=== PATIENT | male | born 2000 | race Caucasian/White ===

== ENCOUNTER 2023-10-03 01:39 | Emergency (ER) | payer OTHER, SELFPAY ==
[2023-10-03 01:44] VITALS: BP 136/76; PULSE 69; RESP 18; TEMP 36.8; O2SAT 99; BMI 25.1
--- NOTE | 2023-10-03 01:49 | ED_ITS ---
HPI - General Adult General Date Seen: 10/03/23 Chief complaint: Dental/Oral/Mouth Injury/Pain Stated complaint: Tooth pain - L side Time Seen by Provider: 10/03/23 01:44 Source: patient Mode of arrival: ambulatory Limitations: no limitations History of Present Illness HPI narrative: Patient is a 23-year-old who presents for evaluation of left lower molar pain. He says this is been bothering him for ?a while? but it is worse today. No facial swelling, fevers, redness. No dental follow-up at this time. He has been taking ibuprofen and Tylenol but says that is not helping. Related Data Home Medications Medication Instructions Recorded Confirmed No Known Home Medications 10/03/23 10/03/23 Allergies Allergy/AdvReac Type Severity Reaction Status Date / Time No Known Drug Allergies Allergy Verified 10/03/23 01:46 [facility] Medical History (Updated 10/03/23 @ 02:24 by Antony Johnson RN) No significant past medical history Surgical History (Updated 10/03/23 @ 02:24 by Antony Johnson RN) No significant past surgical history Social History Smoking Status: Never smoker Second hand tobacco smoke exposure: No How often do you have a drink containing alcohol: never How often do you have six or more drinks on one occasion: Never AUDIT-C Alcohol total score: 0 Non-prescribed substance use: denies use Exam Narrative: Exam Narrative: Vital signs reviewed In general an alert, nontoxic male. Head: Normocephalic, atraumatic. Eyes: Sclera clear. ENT: Does have what appears to be a broken left lower posterior molar. There is no surrounding swelling or evidence of abscess. It is tender to percussion. Jaw and cheek are normal, no swelling, erythema or evidence of cellulitis. Neck: Supple without adenopathy. Const: Vital Signs, click to edit/add: Vital Signs - 24 hr 10/03/23 01:44 10/03/23 02:15 10/03/23 02:26 Temperature 98.2 F 98.0 F 98.2 F Pulse Rate [Right Pulse Oximeter] 69 74 69 Respiratory Rate 18 18 18 Blood Pressure [Ri ght Upper Arm] 136/76 125/70 136/76 Pulse Oximetry 99 99 Oxygen Delivery Me thod Room Air Room Air Documenting provider has reviewed patient's vital signs: yes Course Course ED Course: Unable to check the prescription monitoring database as it is still not functional. I gave him 1 oxycodone here, advised him going forward would recommend ibuprofen 400+ Tylenol 1000 3 times daily. Prescribed amoxicillin, needs dental follow-up. Return for facial swelling, fevers or other worsening. Vital Signs Vital signs: Initial Vital Signs Temperature 98.2 F 10/03/23 01:44 Temperature Source Temporal Artery Scan 10/03/23 01:44 Pulse Rate 69 10/03/23 01:44 Respiratory Rate 18 10/03/23 01:44 Blood Pressure 136/76 10/03/23 01:44 Blood Pressure Mean 96 10/03/23 01:44 Blood Pressure Position Sitting 10/03/23 01:44 Pulse Oximetry 99 10/03/23 01:44 Oxygen Delivery Method Room Air 10/03/23 01:44 Vital Signs Temperature 98.2 F 10/03/23 01:44 Pulse Rate 69 10/03/23 01:44 Respiratory Rate 18 10/03/23 01:44 Blood Pressure 136/76 10/03/23 01:44 Pulse Oximetry 99 10/03/23 01:44 Oxygen Delivery Method Room Air 10/03/23 01:44 Temperature 98.2 F 10/03/23 02:26 Pulse Rate 69 10/03/23 02:26 Respiratory Rate 18 10/03/23 02:26 Blood Pressure 136/76 10/03/23 02:26 Pulse Oximetry 99 10/03/23 02:15 Oxygen Delivery Method Room Air 10/03/23 02:15 Medications Administered Medications: Discontinued Medications Generic Name Dose Route Start Last Admin Trade Name Smita PRN Reason Stop Dose Admin Oxycodone HCl 5 mg 10/03/23 01:48 10/03/23 01:58 Oxycodone 5 Mg Tablet PO 10/03/23 01:49 5 mg ONCE ONE Administration Discharge Plan Discharge Clinical Impression: Toothache Patient Disposition: Home, Self-Care Condition: Stable Instructions: Toothache (ED) Additional Instructions: Dental follow-up next week. Antibiotic as prescribed. Ibuprofen 400 mg plus Tylenol 1000 mg 3 times daily with food. Ice may be helpful as well. For fevers, facial swelling or other worsening, return to the emergency department. Prescriptions: No Action No Known Home Medications Stand Alone Forms: [facility] Info Instructions
[2023-10-03] MEDS: OXYCODONE 5 MG TABLET PO (01:58)
[2023-10-03 02:15] VITALS: BP 125/70; PULSE 74; RESP 18; TEMP 36.7; O2SAT 99
[2023-10-03 02:26] VITALS: BP 136/76; PULSE 69; RESP 18; TEMP 36.8
== END 2023-10-03 02:30 | disposition home or self-care (01) ==
PROVIDERS: Emergency Provider Emergency Medicine
DX: K08.89 Other specified disorders of teeth and supporting structures (principal)
CPT/HCPCS: 99283; A9270

== ENCOUNTER 2025-03-24 21:16 | Emergency (ER) | payer BC, SELFPAY ==
--- OUTSIDE RECORDS SUMMARY | 2025-03-24 21:18 | XMS_ITS | Clinical Summary ---
Author Organization [facility] Address [address] [place] [id number] Care Team Providers Care Speech Language Pathology Assistant Name Role Phone None Primary Care Provider Unavailabl e Medications No known medications Active Problems No known active problems Encounters Date Type Department Care Team Description 03/24/2025 8:28 PM CDT - 03/24/2025 9:00 PM CDT Emergency [address] [id number] Pierre Rivera PA Dental caries (Primary Dx); Pain, dental Discharge Disposition: Home Self Care 03/24/2025 Travel 02/02/2025 Nurse Triage [facility] Centralized Nurse Triage Pcp, No Error-please disregard from Last 3 Months Social History Tobacco Use Types Packs/Day Years Used Date Smoking Tobacco: Never Assessed Sex and Gender Information Value Date Recorded Sex Assigned at Not on file Legal Sex Male 6:33 PM [employer] Gender Identity Not on file Sexual Orientation Not on file Obstetrics History Last Filed Vital Signs Vital Sign Reading Time Taken Comments Blood Pressure 145/88 03/24/2025 8:35 PM CDT Pulse 60 03/24/2025 8:35 PM CDT Temperature 36.9 C (98.5 F) 03/24/2025 8:31 PM CDT Respiratory Rate 16 03/24/2025 8:33 PM CDT Oxygen Saturation 97% 03/24/2025 8:36 PM CDT Inhaled Oxygen Concentration - - Weight 92.9 kg (204 lb 11.2 oz) 03/24/2025 8:35 PM CDT Height 190.5 cm (6' 3) 03/24/2025 8:35 PM CDT Body Mass Index 25.59 03/24/2025 8:35 PM CDT Plan of Treatment Health Maintenance Due Date Last Done Comments Tdap 2010 Depression screening for age 12+ 2011 HIV for age 15-65 2014 HPV series for age 9-26 (1 - Male 3-dose series) 2014 BMI (ht and wt on same day) for age 18+ 2017 Hepatitis C screening for ag e 18-79 2017 Tetanus booster 2019 COVID-19 vaccine series ( - 2023- season) 2024 Influenza Vaccine (Season Ended) 2025 Pneumococcal series for age 6-49 Aged Out No longer eligible based on patient's age to complete this topic Insurance [facility] Care Teams Speech Language Pathology Assistant Relationship Specialty Start Date End Date None . PCP - General 03/24/25
[2025-03-24 21:21] VITALS: BP 161/98; PULSE 59; RESP 18; TEMP 37.1; O2SAT 98; BMI 25.5
--- NOTE | 2025-03-24 21:40 | ED.DENTAL ---
HPI - Dental/Oral General Date Seen: 03/24/25 Chief complaint: Dental/Oral/Mouth Injury/Pain Stated complaint: tooth infection Time Seen by Provider: 03/24/25 21:26 Source: patient Mode of arrival: ambulatory Limitations: no limitations History of Present Illness HPI Narrative: Patient is a 24-year-old male presenting to the emergency department for tooth pain. He has but also sees dentist tomorrow to do with his broken tooth but states the pain is getting much worsening cannot handle it. He broke the tooth a while ago but pain was tolerable up until this past couple days. Ibuprofen was managing the pain up until last night and throat today. Continue to use ibuprofen and Tylenol with no relief. Has not lost any fevers or chills. No other concerns noted at this time. Has not noticed any swelling underneath his tongue, difficulty breathing, difficulty swallowing. Related Data Home Medications ?Medication ?Instructions ?Recorded ?Confirmed ibuprofen 200 mg tablet (Advil) 1,000 mg PO Q6-8H PRN 03/24/25 03/24/25 Allergies Allergy/AdvReac Type Severity Reaction Status Date / Time No Known Drug Allergies Allergy Verified 10/10/24 11:52 Review of Systems Narrative: Pertinent systems reviewed and were negative unless stated in HPI PFSH PFS Medical History No significant past medical history Surgical History No significant past surgical history Social History Smoking Status: Never smoker Second hand tobacco smoke exposure: No How often do you have a drink containing alcohol: never How often do you have six or more drinks on one occasion: Never AUDIT-C Alcohol total score: 0 Non-prescribed substance use: denies use Exam Narrative: Exam Narrative: Const: Well-nourished, Well-developed, in mild distress Eyes: PERRL, no conjunctival injection, and symmetrical lids HENT: Atraumatic external nose and ears. Moist mucous membranes. Poor dentition with obvious dental issues with teeth 6 through 8. Most of his pain is noted at tooth 7 which is broken off at the gum line. Neck: Symmetric, trachea midline, No thyromegaly. MSK:Extremities w/o deformity, Normal Active ROM Skin: Warm, Dry. No rashes or lesions. Neuro: Normal Muscle tone, No focal neurological deficits. Psych: Awake, Alert, & Oriented x3. Appropriate mood and affect. Const: Vital Signs, click to edit/add: Vital Signs - 24 hr 03/24/25 21:21 Temperature 98.8 F Pulse Rate [Right Pulse Oximeter] 59 L Respiratory Rate 18 Blood Pressure [Ri ght Upper Arm] 161/98 H Pulse Oximetry 98 Oxygen Delivery Me thod Room Air Course Vital Signs Vital signs: Initial Vital Signs Temperature 98.8 F 03/24/25 21:21 Temperature Source Temporal Artery Scan 03/24/25 21:21 Pulse Rate 59 L 03/24/25 21:21 Respiratory Rate 18 03/24/25 21:21 Blood Pressure 161/98 H 03/24/25 21:21 Blood Pressure Mean 119 H 03/24/25 21:21 Blood Pressure Position Sitting 03/24/25 21:21 Pulse Oximetry 98 03/24/25 21:21 Oxygen Delivery Method Room Air 03/24/25 21:21 Vital Signs Temperature 98.8 F 03/24/25 21:21 Pulse Rate 59 L 03/24/25 21:21 Respiratory Rate 18 03/24/25 21:21 Blood Pressure 161/98 H 03/24/25 21:21 Pulse Oximetry 98 03/24/25 21:21 Oxygen Delivery Method Room Air 03/24/25 21:21 Temperature 98.8 F 03/24/25 21:21 Pulse Rate 59 L 03/24/25 21:21 Respiratory Rate 18 03/24/25 21:21 Blood Pressure 161/98 H 03/24/25 21:21 Pulse Oximetry 98 03/24/25 21:21 Oxygen Delivery Method Room Air 03/24/25 21:21 MDM - Dental/Oral MDM Narrative Medical decision making narrative: Patient is 24-year-old man male presenting for pain at tooth 7. The tooth is broken. No obvious erythema but will start him on antibiotics for possible infection. I also give him oxycodone for pain control. No signs of neck space infections at this time. No signs of airway issues. I believe the pain is probably occurring due to an infection since pain was not bad just a few days ago. Augmentin and 4 pills of oxycodone sent to [facility]. Discharge Plan Discharge Clinical Impression: Tooth infection Patient Disposition: Home, Self-Care Condition: Stable Instructions: Toothache (ED) Additional Instructions: Make sure to go to a dental appointment tomorrow. Use the oxycodone as needed for pain. He will not be able to get further narcotics for this emergency department for this tooth pain. You need to speak to dentist about pain control. Take the Augmentin as prescribed. Return to emergency department for new or worsening symptoms. Oxycodone and Augmentin prescribed be [facility] Prescriptions: No Action ibuprofen [Advil] 200 mg tablet 1,000 mg PO Q6-8H PRN Follow Up/Referrals: Provider,Not a Local [Primary Care Provider] - Stand Alone Forms: [facility] Info Instructions
--- OUTSIDE RECORDS SUMMARY | 2025-03-24 21:40 | XMS_ITS | Clinical Summary ---
Author Organization [facility] Address [address] [place] [id number] Care Team Providers Care Document Control Assistant Name Role Phone None Primary Care Provider Unavailabl e Medications No known medications Active Problems No known active problems Encounters Date Type Department Care Team Description 03/24/2025 8:28 PM CDT - 03/24/2025 9:00 PM CDT Emergency [address] [address] Pierre Rivera PA Dental caries (Primary Dx); Pain, dental Discharge Disposition: Home Self Care 03/24/2025 Travel 02/02/2025 Nurse Triage [facility] Centralized Nurse Triage Pcp, No Error-please disregard from Last 3 Months Social History Tobacco Use Types Packs/Day Years Used Date Smoking Tobacco: Never Assessed Interpersonal Safety Answer Date Record ed Are you being hit, kicked, p ushed or yelled at (see row info)? No 03/24/2025 Interpersonal Safety Abuse 12 - 18 Not on file 03/24/2025 Interpersonal Safety Ambulatory Vulnerability No t on file 03/24/2025 Sex and Gender Information Value Date Recorded Sex Assigned at Not on file Legal Sex Male 6:33 PM [employer] Gender Identity Not on file Sexual Orientation [...] 2017 Tetanus booster 2019 COVID-19 vaccine series (2023- season) 2024 Influenza Vaccine (Season Ended) 2025 Pneumococcal series for age 6-49 Aged Out No longer eligible based on patient's age to complete this topic Insurance [facility] Care Teams Document Control Assistant Relationship Specialty Start Date End Date None . PCP - General 03/24/25
== END 2025-03-24 21:49 | disposition home or self-care (01) ==
PROVIDERS: Emergency Provider Student in an Organized Health Care Education/Training Program
DX: K04.7 Periapical abscess without sinus (principal)
CPT/HCPCS: 99283